=== PATIENT | male | born 2005 | race African-American/Black ===

== ENCOUNTER → 2024-10-12 | Emergency (ER) | payer MEDICAID ==
[~2024-10-12] VITALS: Ht 170.2 cm; Wt 71.2 kg
[~2024-10-12] MED LIST: ACETAMINOPHEN 500 MG TABLET ONE
[2024-10-12] MEDS: ACETAMINOPHEN 500 MG TABLET PO ONE (22:49)
[2024-10-12 23:25] VITALS: BP 133/68; TEMP 97.8; O2SAT 98
== END | disposition home or self-care (01) ==
LOC: ER 21:48
DX: S01.81XA Laceration without foreign body of other part of head, initial encounter (principal); F17.210 Nicotine dependence, cigarettes, uncomplicated; F20.9 Schizophrenia, unspecified; F32.A Depression, unspecified; R51.9 Headache, unspecified; W01.0XXA Fall on same level from slipping, tripping and stumbling without subsequent striking against object, initial encounter; Y93.89 Activity, other specified; Y92.89 Other specified places as the place of occurrence of the external cause; Y99.8 Other external cause status
CPT/HCPCS: 70450; A4606; A4663; A9150

== ENCOUNTER 2024-12-20 20:32 | Emergency (ER) | payer MEDICAID ==
[~2024-12-20] VITALS: Ht 170.2 cm; Wt 72.6 kg
[2024-12-21] MEDS ORDERED: NEOM28.43 TP (01:17)
[2024-12-21] MEDS ORDERED: CLIN300C12 PO (01:17)
[2024-12-21] MEDS: NEOMY/BACITRA/POLYMYXIN B OINT UD PACKET TP ONE (01:30)
[2024-12-21 06:03] VITALS: BP 118/78; O2SAT 99
== END 2024-12-21 06:04 | disposition home or self-care (01) ==
LOC: ER 20:35
DX: L03.211 Cellulitis of face (principal); F17.290 Nicotine dependence, other tobacco product, uncomplicated; F25.9 Schizoaffective disorder, unspecified
CPT/HCPCS: A4606; A4663